=== PATIENT | female | born 1985 | race Caucasian/White ===

== ENCOUNTER → 2017-10-06 | Outpatient (CLI) | payer MEDICAID ==
--- NOTE | 2017-10-06 14:29 | US ---
EXAMINATION TYPE: Transabdominal DATE OF EXAM: 09/12/17 COMPARISON: NONE CLINICAL HISTORY: Z36 Confirm dates. EXAM PERFORMED: Transabdominal (TA) EXAM MEASUREMENTS: GESTATIONAL AGE / DATING Physician Established: (10 weeks/3 days) EDC: 05/01/2018 Dates by LMP: (10 weeks/3 days) EDC: 05/01/2018 Dates by First Scan: no previous Dates by Current Scan for: (10 weeks/2 days) EDC: 05/02/2018 MATERNAL ANATOMY Uterus: 121 x 7.6 x 8.3 Right Ovary: 3.8 x 2.6 x 1.9 Left Ovary: 3.9 x 2.5 x 3.6 Post CDS / Adnexa: wnl Presence of free fluid: small amount of free fluid Presence of subchorionic bleed: 1.6cm at the posterior inferior gest sac GESTATION / SURVEY CRL: 3.3cm (10 weeks/2 days) MSD: wnl Yolk Sac (normal less than 6mm): 5mm Heart Rate: 175 bpm Rhythm: Normal IUP: Viable IUP Single live intrauterine gestation is confirmed as gestational sac, yolk sac, and pole are iden tified. Small amount of free fluid is seen in pelvic cul-de-sac. Both ovaries are seen. There is no suspicious extraovarian adnexal mass. IMPRESSION: Single live intrauterine gestation is confirmed, mean crown-rump length is 3.3 cm corresp onding to a 10 week 2 day old fetus.
[2017-10-06 14:38] LABS: HGB 13.1 gm/dL (11.4-16.0); MCH 30.6 pg (25.0-35.0); MCHC 33.7 g/dL (31.0-37.0); MCV 90.9 fL (80.0-100.0); Mean Platelet Volume 7.6; Platelet Count 199 k/uL (150-450); RBC 4.29 m/uL (3.80-5.40); RDW 12.8 % (11.5-15.5); WBC 8.5 k/uL (3.8-10.6)
[2017-10-06 19:59] LABS: HIV AB P24 Non-Reactive (Non-Reactive); HIV P24 AG Non-Reactive (Non-Reactive)
[2017-10-06 22:02] LABS: Glucose 83 mg/dL (74-99)
== END | disposition home or self-care (01) ==
LOC: RADUSWWP 13:41
PROVIDERS: ATTEND Obstetrics & Gynecology
DX: O26.811 Pregnancy related exhaustion and fatigue, first trimester (principal); Z3A.10 10 weeks gestation of pregnancy
CPT/HCPCS: 76801; 82565; 82947; 85027; 86762; 86780; 86850; 86900; 86901; 87340; 87390

== ENCOUNTER → 2017-10-19 | Outpatient (CLI) | payer MEDICAID ==
--- NOTE | 2017-10-20 07:41 | US ---
EXAMINATION TYPE: Transabdominal DATE OF EXAM: 09/12/17 COMPARISON: NONE CLINICAL HISTORY: O46.91 Antepartum hemorrhage, unspecified,. EXAM PERFORMED: Transabdominal (TA) EXAM MEASUREMENTS: GESTATIONAL AGE / DATING Physician Established: (12 weeks/2 days) EDC: 05/01/18 Dates by LMP:(12 weeks/2 days) EDC: 05/01/18 Dates by First Scan: (12 weeks/1 days) EDC: 05/02/18 Dates by Current Scan for: (12 weeks/3 days) EDC: 04/30/18 MATERNAL ANATOMY Uterus: 13.5 x 6.9 x 8.1cm Right Ovary: not visualized due to increased uterine size/bowel gas Left Ovary: not visualized due to increased uterine size/bowel gas Post CDS / Adnexa: wnl Presence of free fluid: no Presence of subchorionic bleed: 0.9 x 1.0 x 0.4, previous 1.6 GESTATION / SURVEY CRL: 5.7cm (12 weeks/3 days) Yolk Sac (normal less than 6mm): not visualized Heart Rate: technologist forgot heartrate but witnessed baby moving all throughout exam IUP: yes Nuchal Translucency 10-14wks (normal less than 3mm): 2mm Date of LMP: 07/25/17 IMPRESSION: Single viable intrauterine without subchorionic hemorrhage identified at this time. Technol ogist forgot heartrate but witnessed baby moving all throughout exam
== END | disposition home or self-care (01) ==
LOC: RADUSWWP 16:20
PROVIDERS: ATTEND Obstetrics & Gynecology
DX: O46.91 Antepartum hemorrhage, unspecified, first trimester (principal); Z3A.12 12 weeks gestation of pregnancy
CPT/HCPCS: 76801; 76813

== ENCOUNTER → 2017-12-15 | Outpatient (CLI) | payer MEDICAID ==
--- NOTE | 2017-12-07 17:38 | US ---
EXAMINATION TYPE: US OB >= 14 wk fetus DATE OF EXAM: 12/07/2017 COMPARISON: 10/06/2017 CLINICAL HISTORY: O36.62x0 Maternal care for excessive growth, Anatomy TECHNIQUE: Transabdominal (TA) GESTATIONAL AGE / DATING Physician Established: (19 weeks/2 days) EDC: 05/01/2018 Dates by LMP: (19 weeks/2 days) EDC: 05/01/2018 Dates by First Scan: (19 weeks/1 days) EDC: 05/02/2018 Dates by Current Scan: (19 weeks/0 days) EDC: 05/03/2018 SURVEY IUP: Single PLACENTA: Anterior PREVIA: No Previa MOISES: 12.6 cm Normal CERVICAL LENGTH (transabdominal: norm > 3.0cm): 3.4 cm BIOMETRY PRESENTATION: Breech LIE: Longitudinal BPD: 4.2 cm 18 weeks / 5 days HC: 16.2 cm 19 weeks / 0 days AC: 14.3 cm 19 weeks / 5 days FL: 3.0 cm 19 weeks / 3 days ESTIMATED WEIGHT IN GRAMS: 293.7 grams ESTIMATED WEIGHT IN LBS/OZ: 0 lbs. 10 oz. WEIGHT PERCENTAGE BASED ON ESTABLISHED DATES: 55.8% HC/AC: 1.13 Normal FL/AC: 21.3 Normal HEART RATE: 146 bpm RHYTHM: Normal ANATOMY SEEN (within normal limits): * Lateral Vent (< 1 cm)- 0.8 cm * Cisterna Magna (< 1.1 cm)- 0.4 cm * Nuchal Fold (< 0.6 cm)- 0.2 cm * Cerebellum (varies with age)- 1.8 cm Choroid Plexus (bilateral) Midline Falx Cavus Septi Pellucidi Four Chamber Heart Outflow tracts:? LVOT/RVOT Stomach Situs Nose / Lips Diaphragm Kidneys (bilateral) Bladder Cord Insert Three Vessel Cord Arms (bilateral) Legs (bilateral) ANATOMY NOT SEEN: Spine due to position. Patient will be calling to schedule an OB call back as all administrative assistant front desk em ployees were gone for the day. Viable IUP, measurements consistent with dates. IMPRESSION: There is satisfactory growth compared to first exam. No complicating process seen.
--- NOTE | 2017-12-15 12:38 | US ---
EXAMINATION TYPE: US OB Call Back DATE OF EXAM: 12/15/2017 COMPARISON: Previous dated 12/07/2017. CLINICAL HISTORY: O36.62x0 Maternal care for excessive growth,. GESTATIONAL AGE / DATING Dates by Initial Survey Scan: (20 weeks/3 days) EDC: 05/01/2018 HEART RATE: 147 bpm RHYTHM: Normal ANATOMY SEEN (second anatomic survey look): Longitudinal Spine: wnl Transverse Spine: wnl Mildly heterogeneous pattern noted within the placenta compatible with venous lakes. IMPRESSION: Normal spine. Limited follow-up.
== END | disposition home or self-care (01) ==
LOC: RADUSWWP 12-07 16:20
PROVIDERS: ATTEND Obstetrics & Gynecology
DX: O36.62X0 Maternal care for excessive fetal growth, second trimester, not applicable or unspecified (principal); Z3A.20 20 weeks gestation of pregnancy
CPT/HCPCS: 76811

== ENCOUNTER → 2018-01-18 | Outpatient (CLI) | payer MEDICAID ==
[2018-01-18 09:33] LABS: HCT 32.1 % (34.0-46.0); HGB 10.7 gm/dL (11.4-16.0); MCHC 33.2 g/dL (31.0-37.0); MCV 93.3 fL (80.0-100.0); Mean Platelet Volume 6.9; Platelet Count 179 k/uL (150-450); RBC 3.44 m/uL (3.80-5.40); RDW 13.7 % (11.5-15.5)
== END | disposition home or self-care (01) ==
LOC: LABWHC1 07:58
PROVIDERS: ATTEND Obstetrics & Gynecology
DX: Z34.81 Encounter for supervision of other normal pregnancy, first trimester (principal); Z3A.00 Weeks of gestation of pregnancy not specified
CPT/HCPCS: 36415; 82950; 85027

== ENCOUNTER → 2018-01-24 | Outpatient (CLI) | payer MEDICAID ==
[2018-01-24 11:23] LABS: Glucose 3 Hour, Gest 62 mg/dL
== END | disposition home or self-care (01) ==
LOC: LABWHC1 07:30
PROVIDERS: ATTEND Obstetrics & Gynecology
DX: O99.810 Abnormal glucose complicating pregnancy (principal); Z3A.00 Weeks of gestation of pregnancy not specified
CPT/HCPCS: 36415; 82951; 82952

== ENCOUNTER → 2018-03-29 | Outpatient (CLI) | payer MEDICAID ==
--- NOTE | 2018-03-30 07:24 | US ---
EXAMINATION TYPE: US OB anatomy transabd DATE OF EXAM: 03/29/2018 COMPARISON: 11/29/2017 and 12/15/2017 HISTORY: O36.63X0 Maternal care for excessive growth, Anatomy per order. TECHNIQUE: Transabdominal (TA) EXAM MEASUREMENTS: GESTATIONAL AGE / DATING Physician Established: (35 weeks/2 days) EDC: 05/01/2018 Dates by Current Scan for: (35 weeks/3 days) EDC: 04/30/2018 SURVEY IUP: Single PLACENTA: Anterior- Placental lakes seen PREVIA: No previa MOISES: 13.3 cm Normal CERVICAL LENGTH (transabdominal: norm > 3.0cm): 3.2 cm BIOMETRY PRESENTATION: Vertex BPD: 9.1 cm 37 weeks / 0 days HC: 32.3 cm 36 weeks / 4 days AC: 31.6 cm 35 weeks / 3 days FL: 6.8 cm 34 weeks / 6 days ESTIMATED WEIGHT IN GRAMS: 2716 grams ESTIMATED WEIGHT IN LBS/OZ: 6 lbs. 0 oz. WEIGHT PERCENTAGE BASED ON ESTABLISHED DATE: 56.8 % HC/AC: 1.0 Normal FL/AC: 21.2 Normal HEART RATE: 152 bpm RHYTHM: Normal ANATOMY SEEN (within normal limits): * Lateral Vent (< 1 cm) 0.4 cm Choroid Plexus (bilateral) Midline Falx Cavus Septi Pellucidi Stomach Situs Diaphragm Kidneys (bilateral) Bladder Three Vessel Cord ANATOMY SEEN (does not appear within normal limits): ANATOMY NOT SEEN: Due to late gestational age Longitudinal Spine Transverse Spine Arms (bilateral) Legs (bilateral) Cord Insert Nose / Lips Four Chamber Heart Outflow tracts: LVOT/RVOT * Cisterna Magna (< 1.1 cm) cm * Nuchal Fold (< 0.6 cm) cm * Cerebellum (varies with age) cm Single live IUP measuring 35 weeks 3 days. Placental lakes incidentally noted. IMPRESSION: Single live intrauterine with a calculated sonographic age of 35 weeks and 3 days, concorda nt with menstrual age. Some anatomy described above is not visualized secondary to early gestational age. Remaining anatomy appears unremarkable.
== END ==
LOC: RADUSWWP 16:20
PROVIDERS: ATTEND Obstetrics & Gynecology
DX: O36.63X0 Maternal care for excessive fetal growth, third trimester, not applicable or unspecified (principal); Z3A.35 35 weeks gestation of pregnancy
CPT/HCPCS: 76811

== ENCOUNTER 2018-05-01 10:29 | Inpatient (IN) | payer MEDICAID ==
[2018-05-01] MEDS ORDERED: TERBUTALINE 1 MG/ML VIAL SQ PRN (11:23)
[2018-05-01] MEDS ORDERED: AMPICILLIN 2,000 MG in SODIUM CHLORIDE 0.9% 100 ML IVPB STA (11:23)
[2018-05-01] MEDS ORDERED: CARBOPROST TROMETHAMINE 250 MCG/ML 1 ML AMP IM PRN (11:23)
[2018-05-01] MEDS ORDERED: LIDOCAINE 0.5% (PF) 5 MG/ML (50 ML SDV) SQ PRN (11:23)
[2018-05-01] MEDS ORDERED: METHYLERGONOVINE 0.2 MG/ML 1 ML AMP IM PRN (11:23)
[2018-05-01] MEDS ORDERED: OXYTOCIN 10 UNIT/ML 1 ML VIAL IM PRN (11:23)
[2018-05-01] MEDS ORDERED: OXYTOCIN 20 UNITS/1000 ML NS 1,000 ML IV SCH ×2 (11:30→22:44)
--- NOTE | 2018-05-01 11:53 | US ---
EXAMINATION TYPE: US OB limited DATE OF EXAM: 05/01/2018 COMPARISON: NONE CLINICAL HISTORY: MOISES level. EXAM PERFORMED: Transabdominal (TA) GESTATIONAL AGE / DATING Physician Established: (40 weeks/0 days) EDC: 05/01/18 No growth performed on today?s study per ordering physician SURVEY MOISES: 4.0 cm Ultrasound evidence of premature rupture of membranes? yes POSITION: VERTEX HEART RATE: 136 bpm IMPRESSION: Oligohydramnios, limited survey. Single viable intrauterine .
[2018-05-01] MEDS: LACTATED RINGERS 1,000 ML IV SCH ×2 (12:11→17:41)
[2018-05-01 12:14] LABS: Basophils % (A) 0 %; Eosinophils # (A) 0.1 k/uL (0-0.7); Eosinophils % (A) 1 %; HCT 36.5 % (34.0-46.0); HGB 12.2 gm/dL (11.4-16.0); Lymphocytes # (A) 1.8 k/uL (1.0-4.8); Lymphocytes % (A) 23 %; MCH 30.7 pg (25.0-35.0); MCHC 33.4 g/dL (31.0-37.0); Mean Platelet Volume 7.4; Monocytes # (A) 0.4 k/uL (0-1.0); Monocytes % (A) 5 %; Neutrophils # (A) 5.5 k/uL (1.3-7.7); Neutrophils % (A) 69 %; Platelet Count 181 k/uL (150-450); RBC 3.96 m/uL (3.80-5.40); RDW 14.9 % (11.5-15.5); WBC 7.9 k/uL (3.8-10.6)
[2018-05-01 12:18] VITALS: BMI 29.2
--- NOTE | 2018-05-01 12:26 | P.HPOB ---
History of Present Illness H&P Date: 05/01/18 Chief Complaint: Leaking of fluid and low amniotic index This patient is a pleasant 32-year-old 2 para 1 female estimated date of confinement 05/01/2018 estimated gestational age 40-0/7 weeks who presented to my office this morning for routine visit and stated that she's had some wetness or possible leaking for approximately 2 days. AmnioSure and is exam is negative, however amniotic fluid index on ultrasound and is 4. Patient therefore presents for delivery secondary to oligohydramnios at term and questionable prolonged rupture membranes. Patient's care has otherwise been uncomplicated. She did have a heart echo due to her history of having a ASD repair. heart echo was normal. Review of Systems Gastrointestinal: Reports heartburn Genitourinary: Reports Menstruation: Reports amenorrhea Past Medical History Additional Past Medical History / Comment(s): Patient has a history of an ASD repair at age 18 months History of Any Multi-Drug Resistant Organisms: None Reported Additional Past Surgical History / Comment(s): ASD repair, cardiac ablation 2004 , ear tubes. Past Anesthesia/Blood Transfusion Reactions: No Reported Reaction Past Psychological History: No Psychological Hx Reported Smoking Status: Never smoker Past Alcohol Use History: None Reported Past Drug Use History: None Reported Medications and Allergies Home Medications Medication Instructions Recorded Confirmed Type Pnv No.95/Ferrous Fum/Folic AC 1 each PO DAILY 05/01/18 05/01/18 History [ Multivitamin Tablet] Allergies Allergy/AdvReac Type Severity Reaction Status Date / Time No Known Allergies Allergy Verified 05/01/18 10:35 Exam Intake and Output 04/30/18 05/01/18 05/01/18 22:59 06:59 14:59 Other: Weight 89.63 kg - OBG Physical Exam Abdomen: bowel sounds normal, no diffuse tenderness, no bruit present, no guarding noted, no hepatomegaly, no splenomegaly, no mass Vulva: both: normal Vagina: normal moisture, no discharge Uterus: enlarged (40) Results blood work shows she is O positive, rubella immune, RPR nonreactive, hepatitis B negative, HIV is nonreactive, ultrasounds have been normal. Group B strep is negative. Assessment and Plan Assessment: This is a pleasant 32-year-old 2 para 1 female 40-0/7 weeks gestation with possible prolonged breech premature rupture membranes and oligohydramnios. It is questionable as to whether the patient actually has rupture membranes however to be conservative I'm going to place her on IV antibiotics. Due to the oligohydramnios patient requires delivery at this time regardless. Plan is antibiotic prophylaxis, Pitocin augmentation/induction of labor and anticipate vaginal delivery. (1) 40 weeks gestation of Current Visit: Yes Status: Acute Code(s): Z3A.40 - 40 WEEKS GESTATION OF SNOMED Code(s): 61477941 (2) Oligohydramnios Current Visit: Yes Status: Acute Code(s): O41.00X0 - OLIGOHYDRAMNIOS, UNSP TRIMESTER, NOT APPLICABLE OR UNSP SNOMED Code(s): 31612333 (3) Prolonged premature rupture of membranes Current Visit: Yes Status: Acute Code(s): O42.00 - ANGELIC ROM, ONSET LABOR W/ N 24 HR OF RUPT, UNSP WEEKS OF GEST SNOMED Code(s): 116958057
[2018-05-01] MEDS: AMPICILLIN 1,000 MG in SODIUM CHLORIDE 0.9% 50 ML IVPB SCH ×2 (16:19→20:55)
--- NOTE | 2018-05-01 17:57 | P.MSEPDOC ---
Presenting Problems - Arrival Data Date of Arrival on Unit: 05/01/18 Time of Arrival on Unit: 10:30 Mode of Transport: Ambulatory - Complaint OB-Reason for Admission/Chief Complaint: Rule Out PROM Comment: Sent from office with orders-amnisure and MOISES. Order scanned in EMR. Medical History - Information : 2 Para: 1 Term: 1 : 0 Abortions: Spontaneous or Elective: 0 Number of Living Children: 1 - Gestational Age Gestational Age by MALU (wks/days): 40 Weeks and 0 Days Vital Signs - Temperature Temperature: 98.7 F Temperature Source: Temporal Artery Scan - Pulse Right Sitting Brachial Pulse Rate: 81 Pulse Assessment Method: Automatic Cuff - Respirations Respiratory Rate: 16 Oxygen Delivery Method: Room Air - Blood Pressure Left Arm Sitting Blood Pressure: 125/62 Blood Pressure Mean: 83 Blood Pressure Source: Automatic Cuff Physician Notification (Post) - Physician Notified Physician Notified Date: 05/01/18 Physician Notified Time: 11:14 Physician/Practitioner Notified:: Blanka Spoke With: Blanka New Order Received: Yes - Notification Comment Comment: MOISES 4.01cm, reactive NST, amnisure negative. States to admit for IOL r/ t oligo. Disposition - Disposition OB Disposition: Admit I agree with the RN Medical Screening Exam: Yes Risk & Benefit of care provided described in d/c instruction: Yes Diagnosis: ENCOUNTER FOR FULL-TERM UNCOMPLICATED DELIVERY
[2018-05-01] MEDS ORDERED: ROPIVACAINE 100 MG, fentaNYL (PF) 200 MCG in SODIUM CHLORIDE 0.9% 76 ML EPIDURAL ONE (18:01)
--- NOTE | 2018-05-01 22:24 | P.PROBDLV ---
Vaginal Delivery Note - . Vaginal Delivery Note: Negative progressed complete and pushed with spontaneous vaginal delivery of a viable female over a second-degree midline laceration. Following delivery of the head anterior shoulder was delivered with gentle downward traction followed by the posterior shoulder with gentle upward traction without difficulty from left occiput anterior position. Once baby was fully delivered mouth nares were bulb suctioned and and baby was placed on mother's abdomen where the umbilical cord was clamped and cut in usual fashion. Placenta was then delivered intact and Pitocin was added to the IV. Patient Alexia had issue with uterine atony with her last so we're being very cognizant of this in the next couple of hours. She did have a second-degree midline laceration which was repaired with 3-0 Vicryl following 1% Xylocaine for analgesia. It was relatively deep and was bleeding therefore 1 interrupted suture was placed externally to close the small gap and obtain hemostasis. Once this was accomplished scores were 8 and 9 at one and 5 minutes respectively and the weight is currently pending. Both mother and baby however are stable at this time.
[2018-05-01] MEDS ORDERED: LANOLIN CREAM 5 GM TUBE TOPICAL PRN (22:44)
[2018-05-01] MEDS ORDERED: diphenhydrAMINE 50 MG/ML 1 ML VIAL IVP PRN (22:44)
[2018-05-01] MEDS ORDERED: ZOLPIDEM 5 MG TAB PO PRN (22:44)
[2018-05-01] MEDS ORDERED: diphenhydrAMINE 25 MG CAP PO PRN (22:44)
[2018-05-01] MEDS ORDERED: BISACODYL 10 MG SUPP RECTAL PRN (22:44)
[2018-05-01] MEDS ORDERED: WITCH HAZEL 1 EACH MED..PAD TOPICAL PRN (22:44)
[2018-05-01] MEDS ORDERED: SIMETHICONE 80 MG CHEWABLE PO PRN (22:44)
[2018-05-01] MEDS ORDERED: IBUPROFEN 600 MG TAB PO PRN (22:44)
[2018-05-01] MEDS ORDERED: BENZOCAINE/MENTHOL SPRAY 1 GM/SPRAY AEROSOL TOPICAL PRN (22:44)
[2018-05-01] MEDS ORDERED: HYDROCORTISONE 2.5% RECTAL CREAM 30 GM TUBE RECTAL PRN (22:44)
[2018-05-02] MEDS: SENNOSIDES-DOCUSATE SODIUM 1 EACH TAB PO SCH ×3 (00:09→22:05)
[2018-05-02] MEDS: ACETAMINOPHEN TAB 325 MG TAB PO PRN ×2 (01:00→09:38)
--- NOTE | 2018-05-02 06:30 | P.PNOBGVD ---
Subjective - Subjective Patient reports: Reports appetite normal, Reports voiding normally, Reports pain well controlled, Reports ambulating normally : doing well Objective - Latest Vital Signs Latest vital signs: Vital Signs Temp Pulse Resp BP 05/02/18 04:00 98.6 F 82 16 124/59 05/02/18 00:30 99.2 F 87 16 111/53 05/02/18 00:00 84 16 117/56 05/01/18 23:30 84 16 117/57 05/01/18 23:15 86 16 122/58 05/01/18 23:00 74 14 116/59 05/01/18 22:45 88 14 131/57 05/01/18 22:30 99.6 F 85 14 116/60 05/01/18 17:57 98.7 F 81 16 125/62 05/01/18 12:13 98.7 F 81 16 125/62 Intake and Output 05/01/18 05/01/18 05/02/18 14:59 22:59 06:59 Output Total 200 Balance -200 Output: Urine 200 Other: # Voids 1 1 Weight 89.63 kg - Exam Lungs: bilateral: normal Chest: Normal S1, Normal S2 Extremities: Present: normal Abdomen: Present: normal appearance, soft Uterus: Present: normal, firm Assessment and Plan Assessment: Post day #1. Patient is resting without complaints and is considering going home later today. Vital signs are stable she is afebrile. Uterus is firm nontender she's having normal lochia. My impression is a normal course. Plan is to continue routine care discharge home later tonight or tomorrow morning. (1) 40 weeks gestation of Current Visit: Yes Status: Acute Code(s): Z3A.40 - 40 WEEKS GESTATION OF SNOMED Code(s): 06953039 (2) Oligohydramnios Current Visit: Yes Status: Acute Code(s): O41.00X0 - OLIGOHYDRAMNIOS, UNSP TRIMESTER, NOT APPLICABLE OR UNSP SNOMED Code(s): 73301934 (3) Prolonged premature rupture of membranes Current Visit: Yes Status: Acute Code(s): O42.00 - ANGELIC ROM, ONSET LABOR W/ N 24 HR OF RUPT, UNSP WEEKS OF GEST SNOMED Code(s): 638879096
--- NOTE | 2018-05-02 06:34 | P.DS ---
Providers Date of admission: 05/01/18 11:14 Expected date of discharge: 05/02/18 Attending physician: James Moscoso Primary care physician: Stated None - Discharge Diagnosis(es) (1) 40 weeks gestation of Current Visit: Yes Status: Acute (2) Oligohydramnios Current Visit: Yes Status: Acute (3) Prolonged premature rupture of membranes Current Visit: Yes Status: Acute Hospital Course: Please see dictated H&P for intimate details of this patient's admission. Brief summary this is a pleasant 32-year-old 2 para 1 female 40-0/7 weeks gestation who is admitted to labor and delivery secondary to possible premature rupture membranes at term. Patient ultrasound which showed oligohydramnios and therefore induction was recommended. Patient's placed and IV antibiotics and Pitocin induction of labor quickly went on to have a vaginal delivery viable female infant. Please see dictated delivery note. day 1 patient without complaints wishes to go home. Patient's felt stable for discharge home follow up with me in 6 weeks. Procedures: Induction of labor normal vaginal delivery Patient Condition at Discharge: Good Plan - Discharge Summary Discharge Rx Participant: Yes New Discharge Prescriptions: No Action Pnv No.95/Ferrous Fum/Folic AC [ Multivitamin Tablet] 1 each PO DAILY Discharge Medication List Pnv No.95/Ferrous Fum/Folic AC [ Multivitamin Tablet] 1 each PO DAILY [History] Follow up Appointment(s)/Referral(s): James Moscoso MD [STAFF PHYSICIAN] - 6 Weeks Patient Instructions/Handouts: Vaginal Delivery (DC) Activity/Diet/Wound Care/Special Instructions: No intercourse or anything per vagina for 6 weeks. Please call if any fever, chills, excessive vaginal bleeding, and/or abdominal pain. Discharge Disposition: HOME SELF-CARE
[2018-05-03 08:30] VITALS: BP 112/74; PULSE 76; RESP 15; TEMP 98.1
[2018-05-03] MEDS: SENNOSIDES-DOCUSATE SODIUM 1 EACH TAB PO SCH (10:56)
[2018-05-03] MEDS: ACETAMINOPHEN TAB 325 MG TAB PO PRN (12:08)
== END 2018-05-03 16:20 | disposition home or self-care (01) | DRG 807 ==
LOC: FBPOP 10:29 → 4FBP 11:14
PROVIDERS: ADMIT Obstetrics & Gynecology; ATTEND Obstetrics & Gynecology
PROC: 10E0XZZ Delivery of Products of Conception, External Approach (ICD-10-PCS; principal; 2018-05-01)
PROC: 0KQM0ZZ Repair Perineum Muscle, Open Approach (ICD-10-PCS; 2018-05-01)
PROC: 00HU33Z Insertion of Infusion Device into Spinal Canal, Percutaneous Approach (ICD-10-PCS; 2018-05-01)
PROC: 3E0R3BZ Introduction of Anesthetic Agent into Spinal Canal, Percutaneous Approach (ICD-10-PCS; 2018-05-01)
PROC: 3E033VJ Introduction of Other Hormone into Peripheral Vein, Percutaneous Approach (ICD-10-PCS; 2018-05-01)
DX: O42.12 Full-term premature rupture of membranes, onset of labor more than 24 hours following rupture (principal); Z37.0 Single live birth; Z3A.40 40 weeks gestation of pregnancy; O70.1 Second degree perineal laceration during delivery; Z79.899 Other long term (current) drug therapy
CPT/HCPCS: 76815; 85025; 86850; 86900; 86901

== ENCOUNTER → 2020-01-02 | Outpatient (CLI) | payer MEDICAID ==
--- NOTE | 2020-01-02 12:21 | P.STRESS ---
- Stress Test Note Stress Test Results/Findings: Exam Performed: stress echo exercise Exam Date: 01/02/20 Reason for Exam: VSD, CP, FOREST, PALP Height: 5 ft 9 in Weight: 74.843 kg Protocol: EXERCISE STRESS ECHO Stage: III Duration of Exercise: 7:36 Resting Heart Rate: 73 Resting Blood Pressure: 84/40 Maximum Achieved Heart Rate: 154 Maximum Achieved Blood Pressure: 134/67 85% PMHR: 158 100% PMHR: 186 METS: 9.1 Technologist Comment: Stress Test Results/Findings: This is a 34-year-old female with history of chest pain and shortness of breath and also smoking history. Being evaluated for Cardec status. Patient has history of SVT ablation. Stress data: Baseline EKG showed sinus rhythm with normal IL interval and QRS duration and T-wave changes in the inferolateral leads. Blood pressure at rest is 8440 with pulse rate of 73. Patient walked on the Live protocol for 7 minutes and 36 seconds achieving a maximum to 154 with a blood pressure of about 134/ 67. EKGs taken during a BX site did not reveal any significant change from the baseline. Echo data: Baseline echo images show normal wall motion and thickening. Exercise echo images showed augmentation of wall motion and thickening in all the segments. Final impression: #1. Negative stress test #2. Negative stress echo
--- NOTE | 2020-01-03 11:00 | ECHOF ---
Referral Reason:Q21.0 ventricular septal defect MEASUREMENTS -------- HEIGHT: 175.3 cm WEIGHT: 74.8 kg BP: 86/44 RVIDd: 2.9 cm (< 3.3) IVSd: 0.8 cm (0.6 - 1.1) LVIDd: 5.3 cm (3.9 - 5.3) LVPWd: 0.9 cm (0.6 - 1.1) IVSs: 1.4 cm LVIDs: 3.3 cm LVPWs: 1.4 cm LA Diam: 3.9 cm (2.7 - 3.8) LAESV Index (A-L): 22.93 ml/m Ao Diam: 2.5 cm (2.0 - 3.7) AV Cusp: 2.0 cm (1.5 - 2.6) MV EXCURSION: 17.896 mm (> 18.000) MV EF SLOPE: 186 mm/s (70 - 150) EPSS: 0.6 cm MV E Reinier: 1.20 m/s MV DecT: 151 ms MV A Reinier: 0.47 m/s MV E/A Ratio: 2.55 RAP: 5.00 mmHg RVSP: 32.85 mmHg TAPSE: 18.39 mm FINDINGS -------- Sinus rhythm. This was a technically good study. The left ventricular size is normal. Left ventricular wall thickness is normal. Overall left vent ricular systolic function is normal with, an EF between 55 - 60 %. The right ventricle is normal in size. Normal LA size by volume 22+/-6 ml/m2. The right atrium is normal in size. Interatrial and interventricular septum intact. The aortic valve is trileaflet and appears structurally normal. The mitral valve is normal. Mild tricuspid regurgitation present. Right ventricular systolic pressure is normal at < 35 mmHg. Trace/mild (physiologic) pulmonic regurgitation. The aortic root size is normal. Normal inferior vena cava with normal inspiratory collapse consistent with estimated right atrial pre ssure of 5 mmHg. There is no pericardial effusion. CONCLUSIONS -------- 1. Sinus rhythm. 2. This was a technically good study. 3. The left ventricular size is normal. 4. Left ventricular wall thickness is normal. 5. Overall left ventricular systolic function is normal with, an EF between 55 - 60 %. 6. The aortic valve is trileaflet and appears structurally normal. 7. Trace/mild (physiologic) pulmonic regurgitation. 8. Normal inferior vena cava with normal inspiratory collapse consistent with estimated right atrial pressure of 5 mmHg. 9. There is no pericardial effusion. TYPEWRITER RIBBON WINDER: Pema Durham RDCS
--- NOTE | 2020-01-03 16:06 | ECHOS ---
Stress Test Results/Findings: Exam Performed: stress echo exercise Exam Date: 01/02/20 Reason for Exam: VSD, CP, FOREST, PALP Height: 5 ft 9 in Weight: 74.843 kg Protocol: EXERCISE STRESS ECHO Stage: III Duration of Exercise: 7:36 Resting Heart Rate: 73 Resting Blood Pressure: 84/40 Maximum Achieved Heart Rate: 154 Maximum Achieved Blood Pressure: 134/67 85% PMHR: 158 100% PMHR: 186 METS: 9.1 Technologist Comment: Stress Test Results/Findings: This is a 34-year-old female with history of chest pain and shortness of breath and also smoking history. Being evaluated for Cardec status. Patient has history of SVT ablation. Stress data: Baseline EKG showed sinus rhythm with normal [place] interval and QRS duration and T-wave changes in the inferolateral leads. Blood pressure at rest is 8440 with pulse rate of 73. Patient walked on the Live protocol for 7 minutes and 36 seconds achieving a maximum to 154 with a blood pressure of about 134/ 67. EKGs taken during a BX site did not reveal any significant change from the baseline. Echo data: Baseline echo images show normal wall motion and thickening. Exercise echo images showed augmentation of wall motion and thickening in all the segments. Final impression: #1. Negative stress test #2. Negative stress echo MTDD
== END | disposition home or self-care (01) ==
LOC: RADNMMAIN 09:47
PROVIDERS: ATTEND Internal Medicine Interventional Cardiology
DX: Q21.0 Ventricular septal defect (principal); R06.02 Shortness of breath
CPT/HCPCS: 93306; 93351

== ENCOUNTER → 2020-03-23 | Outpatient (CLI) | payer MEDICAID ==
[2020-03-23 15:20] LABS: African American GFR (CKD) 111.5 (60.0-200.0); Anion Gap 5.6 mmol/L (4.00-12.00); BUN/Creat Ratio 17.5 Ratio (12.00-20.00); Calcium 8.5 mg/dL (8.7-10.3); Carbon Dioxide 28.4 mmol/L (21.6-31.8); Magnesium 1.9 mg/dL (1.5-2.4); Non-African American GFR(CKD) 96.2 (60.0-200.0)
== END | disposition home or self-care (01) ==
LOC: LABWHC1 08:14
PROVIDERS: ATTEND Nurse Practitioner Adult Health
DX: I47.1 Supraventricular tachycardia (principal)
CPT/HCPCS: 36415; 80048; 83735; 84443; 84481

== ENCOUNTER → 2020-05-05 | Outpatient (CLI) | payer MEDICAID ==
--- NOTE | 2020-05-05 16:54 | CONS ---
CONSULTATION REASON FOR CONSULTATION: Sleep apnea. 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 The patient had an ASD and the patient had an open heart closure at a young age, specifically back in 1984. At the age of 19, the patient had a bout of SVT. Currently she is having episodic palpitations. She did have 30-day monitoring through her deck cadet, Dr. Sarmiento, and she was found to have some nocturnal arrhythmias, specifically at around 4:30 a.m. In reviewing the rhythm that was forwarded to me, the patient could have had either atrial tachycardia or atrial fibrillation. For that reason, the patient was referred to me for sleep apnea investigation. She has been told that she snores. She has been told by her that she quits breathing. 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 She goes to bed around 8:30 a.m. and she wakes up at 3 p.m. She feels tired and sleepy during the day. Nevertheless, she is able to function and fulfill all her job requirements without any judgment errors or mistakes or any episodes of falling asleep during working hours. She has gained some weight since her and delivery and she has not been able to lose her weight. Overall, she is up by around 10 pounds. Her Thayer score is 5. No sleep paralysis, hallucinations or cataplexy. She prefers to sleep on her side. No grinding of the teeth. Denies waking up with a gasping or choking sensation. No substance abuse. PAST MEDICAL HISTORY: 1. ASD closure at a young age. The patient had a pediatric ASD that was closed back in 1984. 2. History of SVT. 3. Questionable history of atrial fibrillation. PAST SURGICAL HISTORY: 1. Open-heart surgery for closure an ASD repair. 2. History of SVT with subsequent ablation. DRUG ALLERGIES: NOT KNOWN. OUTPATIENT MEDICATIONS: Outpatient medications include Toprol-XL 12.5 mg p.o. daily. SOCIAL HISTORY: Nonsmoker. No history of alcoholism. No history of IV drugs. FAMILY HISTORY: Noncontributory. REVIEW OF SYSTEMS: Fourteen-point review of systems was done, and the positive findings are all mentioned above in the history of present illness. Her Thayer Score is 9. PHYSICAL EXAMINATION: BP is 123/70, pulse 64, respirations 16, temperature 98.0, saturation 98% on room air. Thayer score is 5. Weight is 173, height is 5 feet 8 inches and BMI 25.9. GENERAL APPEARANCE: Calm, comfortable. HEAD: Atraumatic, normocephalic. NECK: Supple. No JVD. No goiter or neck masses. LUNGS: Clear to auscultation. HEART: Heart sounds are regular rate and rhythm. Normal S1, S2. No S3, S4. No murmurs. The patient has a sternotomy scar over the anterior chest. ABDOMEN: Soft, nontender. No organomegaly. EXTREMITIES: No edema. No cyanosis or clubbing. NEUROLOGIC: Awake and alert. There is no focal neurological deficit. IMPRESSION: 1. Nocturnal cardiac arrhythmias, possible atrial fibrillation versus atrial tachycardia. Consider underlying obstructive sleep apnea. 2. Loud snoring. 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 4. Chronic fatigue and limited sleepiness with an Thayer score of 5. 5. History of ASD closure at a young age. 6. History of supraventricular tachycardia, status post ablation. PLAN: 1. Will proceed with a full polysomnogram. This will be a daytime study to rule out obstructive sleep apnea. 2. Will look for any nocturnal cardiac arrhythmias. 3. Will get back to the patient if there is any significant sleep breathing disorder that needs to be further further treated and investigated. MMODL / IJN: [id number] /
== END | disposition home or self-care (01) ==
LOC: SLEEP 15:46
PROVIDERS: ATTEND Internal Medicine Critical Care Medicine
DX: R06.83 Snoring (principal); R53.82 Chronic fatigue, unspecified; I49.9 Cardiac arrhythmia, unspecified; I48.91 Unspecified atrial fibrillation; Z86.79 Personal history of other diseases of the circulatory system; Z98.890 Other specified postprocedural states; Z79.899 Other long term (current) drug therapy
CPT/HCPCS: 99211

== ENCOUNTER → 2021-06-01 | Outpatient (CLI) | payer MEDICAID | END | disposition home or self-care (01) | LOC: LABWHC1 15:14 | PROVIDERS: ATTEND Emergency Medicine | DX: U07.1 COVID-19 (principal) | CPT/HCPCS: 87635 ==

== ENCOUNTER → 2021-06-02 | Outpatient (CLI) | payer MEDICAID ==
[~2021-06-02] MED LIST: CASIRIVIMAB (REGN10933) (EUA) 600 MG, IMDEVIMAB (REGN10987) (EUA) 600 MG in SODIUM CHLO... IVPB NR; SODIUM CHLORIDE 0.9% 50 ML IVPB NR; SODIUM CHLORIDE 0.9% 500 ML 500 ML in EMPTY BAG 1 BAG IV PRN
[2021-06-02 11:15] VITALS: RESP 16; TEMP 97.6
[2021-06-02 11:52] VITALS: BP 107/72; PULSE 60
== END ==
LOC: PROCWHC3 11:03
PROVIDERS: ATTEND Family Medicine
DX: U07.1 COVID-19 (principal); E66.9 Obesity, unspecified; Z68.26 Body mass index [BMI] 26.0-26.9, adult
CPT/HCPCS: 96360; Q0244; M0243

== ENCOUNTER → 2022-10-14 | Outpatient (CLI) | payer MEDICAID ==
[2022-10-14 11:16] LABS: Basophils # (A) 0.06 X 10*3/uL (0.00-0.10); Basophils % (A) 0.7 %; Eosinophils # (A) 0.36 X 10*3/uL (0.04-0.35); HCT 38.3 % (37.2-46.3); HGB 12.2 g/dL (12.0-15.0); Immature Grans, Automated 0.1 %; Lymphocytes # (A) 4.19 X 10*3/uL (0.90-5.00); Lymphocytes % (A) 46.8 %; MCH 27.3 pg (27.0-32.0); MCHC 31.9 g/dL (32.0-37.0); MCV 85.7 fL (80.0-97.0); Mean Platelet Volume 10.6 fL (9.5-12.2); Monocytes # (A) 0.68 X 10*3/uL (0.20-1.00); Monocytes % (A) 7.6 %; NRBC Per 100 WBC 0 /100 WBCS (0.0-0.0); Neutrophils # (A) 3.65 X 10*3/uL (1.80-7.70); Neutrophils % (A) 40.8 %; Platelet Count 246 X 10*3/uL (140-440); RBC 4.47 X 10*6/uL (4.10-5.20); RDW 14.1 % (11.5-14.5); WBC 8.95 X 10*3/uL (4.50-10.00)
[2022-10-14 11:25] LABS: ALT 16 U/L (8-44); AST 15 U/L (13-35)
== END | disposition home or self-care (01) ==
LOC: LABWHC1 07:25
PROVIDERS: ATTEND Student in an Organized Health Care Education/Training Program
DX: B35.1 Tinea unguium (principal); Z85.820 Personal history of malignant melanoma of skin; Z87.2 Personal history of diseases of the skin and subcutaneous tissue
CPT/HCPCS: 36415; 84450; 84460; 85025

== ENCOUNTER → 2023-07-17 | Outpatient (CLI) | payer MEDICAID ==
[2023-07-17 15:47] LABS: Testosterone 13.6 ng/dL (9.01-47.94)
[2023-07-17 15:53] LABS: Luteinizing Hormone 3.1 mIU/mL
[2023-07-17 15:54] LABS: Basophils # (A) 0.04 X 10*3/uL (0.00-0.10); Basophils % (A) 0.6 %; Eosinophils # (A) 0.11 X 10*3/uL (0.04-0.35); Eosinophils % (A) 1.6 %; HCT 38.8 % (37.2-46.3); Lymphocytes # (A) 2.31 X 10*3/uL (0.90-5.00); Lymphocytes % (A) 32.6 %; MCH 25.6 pg (27.0-32.0); MCHC 30.9 g/dL (32.0-37.0); MCV 82.9 FL (80.0-97.0); Mean Platelet Volume 11.1 FL (9.5-12.2); Monocytes # (A) 0.55 X 10*3/uL (0.20-1.00); Monocytes % (A) 7.8 %; NRBC Per 100 WBC 0 X 10*3/uL (0.00-0.01); Neutrophils # (A) 4.06 X 10*3/uL (1.80-7.70); Neutrophils % (A) 57.1 %; Platelet Count 294 X 10*3/uL (140-440); RBC 4.68 X 10*6/uL (4.10-5.20); RDW 13.6 % (11.5-14.5); WBC 7.09 X 10*3/uL (4.50-10.00)
== END | disposition home or self-care (01) ==
LOC: LABWHC1 10:19
PROVIDERS: ATTEND Obstetrics & Gynecology
DX: N92.1 Excessive and frequent menstruation with irregular cycle (principal); R68.82 Decreased libido
CPT/HCPCS: 36415; 83001; 83002; 84144; 84403; 84443; 85025